=== PATIENT | female | born 1955 | race Hispanic/Latino ===

== ENCOUNTER 2016-03-13 19:45 | Inpatient (IN) | payer MEDICARE ==
--- NOTE | 2016-03-13 22:07 | Emergency Department Report ---
Chief Complaint: Hyperglycemia Stated Complaint: HIGH BLOOD GLUCOSE Time Seen by Provider: 03/13/16 21:50 - HPI History of Present Illness: 60-year-old female, brought in by ambulance for her hyperglycemia and weakness. Patient has history of diabetes and is currently on Lantus. Her blood glucose level was elevated this morning the patient refused to go to the hospital. Patient also refused to administer her insulin with BG level of 471 this evening. Denies chest pain, shortness of breath, abdominal pain. - ROS Review of Systems: Per HPI - Exam Vital Signs: Vital Signs 03/13/16 20:56 Temperature 97.9 F Pulse Rate 112 H Respiratory 18 Rate Blood Pressure 125/70 O2 Sat by Pulse 93 Oximetry Physical Exam: General: 60-year-old female in no acute distress. Unable to stay awake. CV: Regular rate and rhythm. Lungs: Clear to auscultation bilaterally. Abdomen: No tenderness to palpation. No guarding or rebound tenderness. MSE screening note: Focused history and physical exam performed. Due to findings the following was ordered: ED Disposition for MSE Condition: Stable
[2016-03-13 23:03] LABS: Basophils % (Auto) 0.2 % (0.0-1.8); Eosinophils % (Auto) 0.6 % (0.0-4.3); Hematocrit 43.3 % (30.3-42.9); Hemoglobin 14.7 gm/dl (10.1-14.3); Mean Corpuscular HGB Conc 34 % (30-34); Mean Corpuscular Hemoglobin 30 pg (28-32); Mean Corpuscular Volume 88 fl (79-97); Platelet Count 441 K/mm3 (140-440); Red Blood Count 4.94 M/mm3 (3.65-5.03); Red Cell Distribution Width 13.4 % (13.2-15.2); White Blood Count 17.9 K/mm3 (4.5-11.0)
[2016-03-13 23:17] LABS: Anion Gap 20 mmol/L; B-Hydroxybutyrate 6.8 mg/dL (0.2-2.8); Blood Urea Nitrogen 11 mg/dL (7-17); Calcium 8.7 mg/dL (8.4-10.2); Carbon Dioxide 22 mmol/L (22-30); Chloride 94.2 mmol/L (98-107); Glucose 406 mg/dL (65-100); Potassium 3.6 mmol/L (3.6-5.0); Sodium 133 mmol/L (137-145)
[2016-03-14] MEDS ORDERED: NACL 0.9% 1000 ML 1,000 ML IV ONE (08:11)
--- NOTE | 2016-03-14 08:11 | Emergency Department Report ---
ED General Adult HPI - General Chief complaint: Hyperglycemia Stated complaint: HIGH BLOOD GLUCOSE Time Seen by Provider: 03/13/16 22:07 Source: patient, EMS Mode of arrival: Wheelchair Limitations: No Limitations - History of Present Illness Initial comments: This is a patient that was transferred reported via EMS. 40 to the EMS report she was found sitting upright on her bed "complaining of weakness and nausea". The patient stated that she found that her glucose was approximately 500. Apparently. According to the RN present at that time wanted the patient to go to the hospital but she refused. Further the patient self administers insulin twice a day I am... She didn't take her insulin." The patient refused IV access. Apparently she has a history of schizophrenia. Contrary to the implications of this EMS reported the patient tells the nurse and myself that she is "homeless". The patient is said to have a history of a bipolar disorder and perhaps schizophrenia. Her current medications indicate hypothyroidism and anxiety disorder as well. In any case the patient presents to the emergency department with a chief complaint of "I'm hungry". The patient repeatedly states this. She does not complain of polyuria or polydipsia. She denies chest pain abdominal pain or recent vomiting although she stated that she was nauseated. She denies recent fever or chills. She is poorly cooperative with nursing staff. She is repeatedly asking for food. She is told that she will be fed once her sugar starts going down. She is not accepting of this. -: unknown Severity scale (0 -10): 0 Associated Symptoms: denies other symptoms - Related Data Home Medications Medication Instructions Recorded Confirmed Last Taken Levothyroxine [Synthroid] 125 mcg PO QAM 03/05/14 03/14/16 12/22/14 clonazePAM [KlonoPIN] 1 mg PO BID PRN 03/05/14 03/14/16 12/22/14 Lantus VIAL 50 units SUB-Q HS 12/15/14 03/14/16 12/22/14 Gabapentin [Neurontin] 300 mg PO BID 12/22/14 03/14/16 12/22/14 glipiZIDE [Glucotrol] 5 mg PO DAILY 12/22/14 03/14/16 12/22/14 Simvastatin 10 mg PO QHS 09/09/15 03/14/16 Unknown Lisinopril [Zestril] 5 mg PO QDAY 03/14/16 03/14/16 Unknown Metformin HCl [Fortamet ER] 1,000 mg PO BID 03/14/16 03/14/16 Unknown Trazodone HCl 450 mg PO HS 03/14/16 03/14/16 Unknown Allergies Allergy/AdvReac Type Severity Reaction Status Date / Time haloperidol [From Haldol] Allergy Unknown Verified 12/22/14 14:37 haloperidol lactate Allergy Unknown Verified 12/22/14 14:37 [From Haldol] ketorolac tromethamine Allergy Unknown Verified 12/22/14 14:37 [From Toradol] ED Review of Systems ROS: Stated complaint: HIGH BLOOD GLUCOSE Other details as noted in HPI Comment: All other systems reviewed and negative (patient only complaining of hunger now. Uncooperative historian) ED Past Medical Hx - Past Medical History Hx Hypertension: Yes Hx Diabetes: Yes Hx Psychiatric Treatment: Yes (schizo/bipolar) - Surgical History Hx Appendectomy: Yes Additional Surgical History: thyroid surgery, left knee surgery, bilateral tubal ligation, bladder tack - Social History Smoking Status: Current Every Day Smoker Substance Use Type: None - Medications Home Medications: Home Medications Medication Instructions Recorded Confirmed Last Taken Type Levothyroxine [Synthroid] 125 mcg PO QAM 03/05/14 03/14/16 12/22/14 History clonazePAM [KlonoPIN] 1 mg PO BID PRN 03/05/14 03/14/16 12/22/14 History Lantus VIAL 50 units SUB-Q HS 12/15/14 03/14/16 12/22/14 History Gabapentin [Neurontin] 300 mg PO BID 12/22/14 03/14/16 12/22/14 History glipiZIDE [Glucotrol] 5 mg PO DAILY 12/22/14 03/14/16 12/22/14 History Simvastatin 10 mg PO QHS 09/09/15 03/14/16 Unknown History Lisinopril [Zestril] 5 mg PO QDAY 03/14/16 03/14/16 Unknown History Metformin HCl [Fortamet ER] 1,000 mg PO BID 03/14/16 03/14/16 Unknown History Trazodone HCl 450 mg PO HS 03/14/16 03/14/16 Unknown History ED Physical Exam - General Limitations: No Limitations General appearance: alert, in no apparent distress - Head Head exam: Present: atraumatic, normocephalic - Eye Eye exam: Present: normal appearance, PERRL, EOMI. Absent: scleral icterus - ENT ENT exam: Present: mucous membranes moist - Neck Neck exam: Present: normal inspection - Respiratory Respiratory exam: Present: normal lung sounds bilaterally. Absent: respiratory distress - Cardiovascular Cardiovascular Exam: Present: regular rate, normal rhythm. Absent: systolic murmur, diastolic murmur, rubs, gallop - GI/Abdominal GI/Abdominal exam: Present: soft, normal bowel sounds. Absent: distended, tenderness, guarding, rebound, rigid, organomegaly, mass - Extremities Exam Extremities exam: Present: normal inspection - Back Exam Back exam: Present: normal inspection - Neurological Exam Neurological exam: Present: alert, oriented X3, CN II-XII intact. Absent: motor sensory deficit - Psychiatric Psychiatric exam: Present: agitated, anxious - Skin Skin exam: Present: warm, dry, intact, normal color. Absent: rash ED Course Vital Signs 03/13/16 03/14/16 03/14/16 20:56 03:44 06:41 Temperature 97.9 F 97.8 F Pulse Rate 112 H 103 H 91 H Respiratory 18 20 18 Rate Blood Pressure 125/70 Blood Pressure 118/72 [Left] O2 Sat by Pulse 93 95 Oximetry 03/14/16 03/14/16 03/14/16 06:55 07:00 07:43 Temperature 97.9 F 97.6 F Pulse Rate 90 94 H 94 H Respiratory 18 11 L 16 Rate Blood Pressure 139/86 Blood Pressure 118/77 143/82 [Left] O2 Sat by Pulse 93 95 95 Oximetry 03/14/16 08:52 Temperature Pulse Rate 95 H Respiratory Rate Blood Pressure Blood Pressure [Left] O2 Sat by Pulse Oximetry - Reevaluation(s) Reevaluation #1: Apparently the nurse has had very poor cooperation from this patient. In fact she stated to me that the patient told her that she wanted to have a nurse that "spoke Latvian and was Jainism". Obviously, his does not make much sense. In addition I was told that the patient complained that we instituted a 1013 and we wouldn't feed her. Neither of these things are true. The patient was given IV insulin. Her glucose was rechecked. It was less than 200 and she was fed. I did not institute a 1013 at any time. However, the patient's EKG here has been somewhat irrational. I do not feel that there are 1013 criteria yet. I explained the situation to the hospitalist Dr. Brown. He understood that the patient had early DKA. She was also found to have leukocytosis and some pyuria. She was noncompliant with her insulin. This appeared to to both of us to be a reasonable admission. Therefore, I assume this patient was being admitted. 03/14/16 10:37 Reevaluation #2: Further care and management per hospitalist staff. 03/14/16 10:45 ED Medical Decision Making - Lab Data Result diagrams: 03/13/16 22:33 03/13/16 22:33 Laboratory Results - last 24 hr 03/13/16 03/13/16 03/13/16 21:05 22:33 22:33 WBC 17.9 H RBC 4.94 Hgb 14.7 H Hct 43.3 H MCV 88 MCH 30 MCHC 34 RDW 13.4 Plt Count 441 H Lymph % (Auto) 24.4 [place] % (Auto) 7.3 Eos % (Auto) 0.6 Baso % (Auto) 0.2 Lymph # 4.4 [place] # 1.3 H Eos # 0.1 Baso # 0.0 Seg Neutrophils % 67.5 Seg Neutrophils # 12.1 H VBG pH Sodium 133 L Potassium 3.6 Chloride 94.2 L Carbon Dioxide 22 Anion Gap 20 BUN 11 Creatinine 0.4 L Estimated GFR > 60 BUN/Creatinine Ratio 27.50 Glucose 406 H POC Glucose 384 H Calcium 8.7 Ketones 6.8 H 03/13/16 22:33 WBC RBC Hgb Hct MCV MCH MCHC RDW Plt Count Lymph % (Auto) [place] % (Auto) Eos % (Auto) Baso % (Auto) Lymph # [place] # Eos # Baso # Seg Neutrophils % Seg Neutrophils # VBG pH 7.374 Sodium Potassium Chloride Carbon Dioxide Anion Gap BUN Creatinine Estimated GFR BUN/Creatinine Ratio Glucose POC Glucose Calcium Ketones - Radiology Data interpreted by me: Chest x-ray showed no acute process. Critical care attestation.: If time is entered above; I have spent that time in minutes in the direct care of this critically ill patient, excluding procedure time. ED Disposition Clinical Impression: Pyuria DKA (diabetic ketoacidoses) Qualifiers: Diabetes mellitus type: type 2 Diabetes mellitus complication detail: without coma Qualified Code(s): E13.10 - Other specified diabetes mellitus with ketoacidosis without coma Leukocytosis Qualifiers: Leukocytosis type: unspecified Qualified Code(s): D72.829 - Elevated white blood cell count, unspecified Disposition: OP ADMITTED IP TO THIS HOSP Is pt being admited?: Yes Does the pt Need Aspirin: No Condition: Stable Instructions: Diabetic Ketoacidosis (ED) Referrals: ESTEBAN JIMENES MD [Primary Care Provider] - 3-5 Days Time of Disposition: 10:44
[2016-03-14] MEDS ORDERED: K-DUR PO ONE (08:12)
[2016-03-14 08:19] LABS: Bacteria,Urine 1+ /HPF (Negative); Bilirubin,Urine NEG (Negative); Blood,Urine NEG (Negative); Ketones,Urine 20 mg/dL (Negative); Leukocyte Esterase,Urine SM (Negative); Mucus,Urine FEW /HPF; Nitrite,Urine NEG (Negative); Urobilinogen,Urine < 2.0 mg/dL (<2.0)
--- NOTE | 2016-03-14 10:28 | History and Physical Report ---
History of Present Illness Date of examination: 03/14/16 Date of admission: 03/14/16 Chief complaint: high BG LEVEL History of present illness: This is a patient that was transferred reported via EMS. EMS reported that she was found sitting upright on her bed "complaining of weakness and nausea". The patient stated that her HH nurse found that her glucose was approximately 540 yesterday and asked her to come to the hospital but she refused. But later on she became lightheaded and started feel very weak, her BG continue to run high. She then decided to come to hospital. She does not complain of polyuria or polydipsia. She denies chest pain abdominal pain or recent vomiting although she stated that she was nauseated. She denies recent fever or chills. Her BG in the ER noted to be 406 with high WBC count and UA suggestive of UTI. Past History Past Medical History: COPD, diabetes, heart failure (EF unknown), hypertension, hyperlipidemia, hypothyroidism, other (bipolar disorder) Past Surgical History: appendectomy, total knee replacement, Other (bladder tuck , tubal ligation) Social history: smoking. denies: alcohol abuse, IV drug use Family history: cancer (in grandmother) Medications and Allergies Allergies Allergy/AdvReac Type Severity Reaction Status Date / Time haloperidol [From Haldol] Allergy Unknown Verified 12/22/14 14:37 haloperidol lactate Allergy Unknown Verified 12/22/14 14:37 [From Haldol] ketorolac tromethamine Allergy Unknown Verified 12/22/14 14:37 [From Toradol] Home Medications Medication Instructions Recorded Confirmed Last Taken Type Levothyroxine [Synthroid] 125 mcg PO QAM 03/05/14 03/14/16 12/22/14 History clonazePAM [KlonoPIN] 1 mg PO BID PRN 03/05/14 03/14/16 12/22/14 History Lantus VIAL 50 units SUB-Q HS 12/15/14 03/14/16 12/22/14 History Gabapentin [Neurontin] 300 mg PO BID 12/22/14 03/14/16 12/22/14 History glipiZIDE [Glucotrol] 5 mg PO DAILY 12/22/14 03/14/16 12/22/14 History Simvastatin 10 mg PO QHS 09/09/15 03/14/16 Unknown History Lisinopril [Zestril] 5 mg PO QDAY 03/14/16 03/14/16 Unknown History Metformin HCl [Fortamet ER] 1,000 mg PO BID 03/14/16 03/14/16 Unknown History Trazodone HCl 450 mg PO HS 03/14/16 03/14/16 Unknown History Active Meds: Review of System: Constitutional: no fever, no chills, no weight loss Ears, eyes, nose, mouth and throat: no nasal congestion, no nasal discharge, no sinus pressure, no vision change, no red eye. Neck: No neck pain or rigidity. Cardiovascular: No chest pain, no orthopnea, no palpitations, no leg swelling Respiratory: No shortness of breath, no cough, no congestion, no wheezing Gastrointestinal: no abdominal pain, + nausea, no vomiting Genitourinary : + dysuria, no hematuria Musculoskeletal: no joint swelling or muscle ache Integumentary: no rash, no pruritis Neurological: no parathesias, no numbness, no tingling Endocrine: no cold or heat intolerance, no polyuria or polydipsia Hematologic/Lymphatic: no easy bruising, no easy bleeding, no gland swelling Allergic/Immunologic: no urticaria, no angioedema. Review of Systems ROS unobtainable: due to mental status Exam - Physical Exam Narrative exam: GENERAL: This is well-developed well-nourished WF lying on bed appeared to be in no discomfort. HEENT: Normocephalic. Atraumatic. Extraocular motions are intact. No conjunctival congestion or icterus. Patient has moist mucous membranes. External auditory canal and nares patent bilaterally. NECK: Supple. Trachea midline. No JVD, thyromagaly or lymphadenopathy. CHEST/LUNGS: Clear to auscultated bilaterally. There is no respiratory distress noted, breathing nonlabored. No wheezes crackles or rhonchi. HEART/CARDIOVASCULAR: Tachycardic. PMI at the apex. There is no gallop rub or murmur. ABDOMEN: Abdomen is soft, nontender. Patient has normal bowel sounds. There is no abdominal distention. No organomagaly or rigidity. SKIN: There is no rash, no erythrema. There is no diaphoresis. Warm and dry. NEUROLOGY: The patient is awake, alert, and oriented. The patient is cooperative. The patient has normal speech. No focal motor deficit. MUSCULOSKELETAL: No joint effusion or tenderness. Muscle strength equal bilaterally. No muscle wasting. EXTRIMITY: No edema, cyanosis or clubbing. PSYCH: No depression or anxiety noted. Cooperative. - Constitutional Vitals: Temp Pulse Resp BP Pulse Ox 97.6 F 95 H 16 143/82 95 03/14/16 07:43 03/14/16 08:52 03/14/16 07:43 03/14/16 07:43 03/14/16 07:43 Results - Labs CBC & Chem 7: 03/15/16 05:15 03/15/16 05:15 Labs: Laboratory Last Values WBC 17.9 K/mm3 (4.5-11.0) H 03/13/16 22:33 RBC 4.94 M/mm3 (3.65-5.03) 03/13/16 22:33 Hgb 14.7 gm/dl (10.1-14.3) H 03/13/16 22:33 Hct 43.3 % (30.3-42.9) H 03/13/16 22:33 MCV 88 fl (79-97) 03/13/16 22:33 MCH 30 pg (28-32) 03/13/16 22:33 MCHC 34 % (30-34) 03/13/16 22:33 RDW 13.4 % (13.2-15.2) 03/13/16 22: Plt Count 441 K/mm3 (140-440) H 03/13/16 22:33 Lymph % (Auto) 24.4 % (13.4-35.0) 03/13/16 22:33 [place] % (Auto) 7.3 % (0.0-7.3) 03/13/16 22:33 Eos % (Auto) 0.6 % (0.0-4.3) 03/13/16 22:33 Baso % (Auto) 0.2 % (0.0-1.8) 03/13/16 22: Lymph # 4.4 K/mm3 (1.2-5.4) 03/13/16 22:33 [place]oke # 1.3 K/mm3 (0.0-0.8) H 03/13/16 22: Eos # 0.1 K/mm3 (0.0-0.4) 03/13/16 22:33 Baso # 0.0 K/mm3 (0.0-0.1) 03/13/16 22:33 Seg Neutrophils % 67.5 % (40.0-70.0) 03/13/16 22:33 Seg Neutrophils # 12.1 K/mm3 (1.8-7.7) H 03/13/16 22:33 VBG pH 7.374 (7.320-7.420) 03/13/16 22:33 Sodium 133 mmol/L (137-145) L 03/13/16 22:33 Potassium 3.6 mmol/L (3.6-5.0) 03/13/16 22:33 Chloride 94.2 mmol/L (98-107) L 03/13/16 22:33 Carbon Dioxide 22 mmol/L (22-30) 03/13/16 22:33 Anion Gap 20 mmol/L 03/13/16 22:33 BUN 11 mg/dL (7-17) 03/13/16 22:33 Creatinine 0.4 mg/dL (0.7-1.2) L 03/13/16 22:33 Estimated GFR > 60 ml/min 03/13/16 22:33 BUN/Creatinine Ratio 27.50 % 03/13/16 22:33 Glucose 406 mg/dL (65-100) H 03/13/16 22:33 POC Glucose 127 (70-105) H 03/14/16 09:52 Calcium 8.7 mg/dL (8.4-10.2) 03/13/16 22:33 Urine Color Yellow (Yellow) 03/14/16 07:46 Urine Turbidity Clear (Clear) 03/14/16 07:46 Urine pH 6.0 (5.0-7.0) 03/14/16 07:46 Ur Specific [place] 1.033 (1.003-1.030) H 03/14/16 07:46 Urine Protein 30 mg/dl mg/dL (Negative) 03/14/16 07:46 Urine Glucose (UA) >=500 mg/dL (Negative) 03/14/16 07:46 Urine Ketones 20 mg/dL (Negative) 03/14/16 07:46 Urine Blood Neg (Negative) 03/14/16 07:46 Urine Nitrite Neg (Negative) 03/14/16 07:46 Urine Bilirubin Neg (Negative) 03/14/16 07:46 Urine Urobilinogen < 2.0 mg/dL (<2.0) 03/14/16 07:46 Ur Leukocyte Esterase Sm (Negative) 03/14/16 07:46 Urine WBC (Auto) 18.0 /HPF (0.0-6.0) H 03/14/16 07:46 Urine RBC (Auto) 8.0 /HPF (0.0-6.0) 03/14/16 07:46 U Epithel Cells (Auto) 7.0 /HPF (0-13.0) 03/14/16 07:46 Urine Bacteria (Auto) 1+ /HPF (Negative) 03/14/16 07:46 Urine Mucus Few /HPF 03/14/16 07:46 Ketones 6.8 mg/dL (0.2-2.8) H 03/13/16 22:33 - Imaging and Cardiology Chest x-ray: report reviewed (no infiltrates) Assessment and Plan Assessment and plan: Sepsis likely due to UTI Urinary tract infection Hyperglycemia due to uncontrolled diabetes mellitus type 2 Bipolar disorder, not on any medication hypertension, benign essential hypothyroidism Plan: Admit to medicine Continue subcutaneous insulin and ADA diet along with IV fluid hydration Get mental health evaluation Place on antibiotics, follow urine culture convention manager consultation for placement resume home meds It took me about 45 minutes for initial care of this patient including history and physical, reviewing initial lab results and ER documents, placing admission orders, bedside counseling and coordination of care. Advance Directives: Yes VTE prophylaxis?: Chemical Plan of care discussed with patient/family: Yes
[2016-03-14] MEDS ORDERED: MILK OF MAGNESIA PO PRN (10:35)
[2016-03-14] MEDS ORDERED: AMBIEN PO PRN (10:35)
[2016-03-14] MEDS ORDERED: ZOFRAN IV PRN (10:35)
[2016-03-14] MEDS ORDERED: TYLENOL PO PRN (10:35)
[2016-03-14] MEDS ORDERED: DULCOLAX PR PRN (10:35)
[2016-03-14] MEDS ORDERED: LEVAQUIN 750MG/150ML 150 ML IV ONE ×2 (10:36→11:12)
--- NOTE | 2016-03-14 11:05 | Admit Criteria Form ---
Admission Criteria Documentation: DIABETES Clinical Indications for Admission to Inpatient Care (Place 'X' for any and all applicable criteria): Admission is indicated by presence of ALL (if I & II) or ANY ONE (if III or IV) of the following (1)(2)(3)(4): [X]I. Diabetes is uncontrolled as indicated by ANY ONE of the following: [X]a) Diabetic ketoacidosis as indicated by ALL of the following (8): [X]i) Hyperglycemia (eg, plasma glucose greater than 200 mg/ dL (11.1 mmol/L)) [ ]ii) Acidosis (eg, arterial pH less than 7.30, serum bicarbonate level less than 15 mEq/L (mmol/L)) [X]iii) Moderate ketonuria or ketonemia [ ]b) Hyperglycemic hyperosmolar state as indicated by ALL of the following(9)(10): [ ]i) Neurologic dysfunction (eg, stupor, coma, hemiparesis , seizure)(13) [ ]ii) Plasma glucose greater than 600 mg/dL (33.3 mmol/L) [ ]iii) Serum osmolality greater than 320 mOsm/kg (mmol/kg) [X]c) Severe signs or symptoms secondary to hyperglycemia indicated by ANY ONE of the following: [ ]i) Altered mental status(10) [ ]ii) Significant hypovolemia or dehydration [ ]iii) Intractable nausea or vomiting [ ]iv) Unexplained fever or severe infection [X]v) Severe electrolyte abnormality (eg, hypokalemia, hyperkalemia, hypernatremia) [ ]II. Management at other levels of care (Also use Diabetes: Observation Care as appropriate) is not feasible because of ANY ONE of the following: [ ]a) Condition was not adequately corrected with treatment at other levels of care. [ ]b) Treatment at other levels of care is not appropriate because of condition severity (eg, hyperosmolar coma). [X]III. Contraindications and/or Inappropriate clinical situations for Observational Care in patients with Diabetes, when ANY ONE of the following is required: [X]a) Patient require specific diagnostic workup or therapeutic intervention 22 [ ]b) Patient with abnormal vital signs or altered mental status 23 [ ]IV. General contraindications and/or Inappropriate clinical situations for Observational Care in patients with Diabetes, when ANY ONE of the following is required: [ ]a) Prediction of prolongation of LOS based on ANY ONE of the following may be considered as a contraindication for observational care 2, 3, 4, 5, 6, 7, 8, 9, 10, 11 [ ]i) Age > 65 yrs. [ ]ii) Patient arriving by ambulance [ ]iii) Patient with high acuity [ ]iv) Patient requiring vital sign monitoring [ ]v) Patient on IV medication [ ]b) Systolic blood pressures 180mmHg 3,12 [ ]c) Patient with altered mental status including delirium and other alteration of consciousness, (3) [ ]d) Patient whose discharge disposition will be to a shelter home or rehabilitation home should not be managed in Emergency Department Observation Unit. CMS rule requires 3 days hospital stay before such placement.3,13 [ ]e) Patient with failure to thrive due to broad array of etiologies 3,16,17 [ ]f) Inability to ambulate 3,14 Extended stay beyond goal length of stay may be needed for(3)(20): [ ]a) Treatment of precipitating causes [ ]b) Development of hypoglycemia [ ]c) Complications of treatment [ ]d) Complications of decompensated diabetes (eg, acute gastric dilatation, persistent metabolic or neurologic derangement) [ ]e) Active Comorbidities [ ]f) Older patients( 65 years or older) The original [facility] content created by [employer] has been revised. The portions of the content which have been revised are identified through the use of italic text or in bold,and [facility] has neither reviewed nor approved the modified material. All other unmodified content is copyright [facility]. Please see references footnoted in the original [facility] edition 2016 Admission Criteria Met: Yes
--- NOTE | 2016-03-14 11:08 | XRay Report ---
Single view chest: Compared to 09/09/15 History: Cough. Findings: Normal cardiomediastinal silhouette. Trachea is midline. No consolidation, pneumothorax or pleural effusion. Impression: No acute cardiopulmonary findings .
[2016-03-14] MEDS ORDERED: GLUCOTROL PO SCH (12:00)
[2016-03-14] MEDS: ZESTRIL PO SCH (14:11)
[2016-03-14] MEDS: PEPCID PO SCH ×2 (14:11→22:13)
[2016-03-14] MEDS: GLUCOTROL PO SCH (14:11)
[2016-03-14] MEDS: LOVENOX SUB-Q SCH (14:11)
[2016-03-14] MEDS: NEURONTIN PO SCH ×2 (14:11→22:12)
[2016-03-14] MEDS: NACL 0.9% 1000 ML 1,000 ML IV SCH (16:10)
[2016-03-14] MEDS: GLUCOPHAGE PO SCH (17:38)
[2016-03-14] MEDS ORDERED: NON-FORMULARY (Metformin Hcl [Fortamet Er] 1,000 MG) PO SCH (22:00)
[2016-03-14] MEDS ORDERED: LANTUS 20 UNIT SUB-Q SCH (22:00)
[2016-03-14] MEDS ORDERED: LEVEMIR SUB-Q SCH (22:00)
[2016-03-14] MEDS ORDERED: NON-FORMULARY (Simvastatin 10 MG) PO SCH (22:00)
[2016-03-14] MEDS ORDERED: TRAZODONE HCL PO SCH (22:00)
[2016-03-14] MEDS: ZOCOR PO SCH (22:12)
[2016-03-14] MEDS: DESYREL PO SCH (22:12)
[2016-03-14] MEDS: COLACE PO SCH (22:13)
[2016-03-15] MEDS: SYNTHROID PO SCH (05:16)
[2016-03-15] MEDS: NACL 0.9% 1000 ML 1,000 ML IV SCH ×2 (05:19→17:41)
[2016-03-15 05:45] LABS: Basophils % (Auto) 0.5 % (0.0-1.8); Eosinophils % (Auto) 1.2 % (0.0-4.3); Hematocrit 39.9 % (30.3-42.9); Hemoglobin 13.4 gm/dl (10.1-14.3); Mean Corpuscular HGB Conc 34 % (30-34); Mean Corpuscular Hemoglobin 30 pg (28-32); Mean Corpuscular Volume 88 fl (79-97); Platelet Count 359 K/mm3 (140-440); Red Blood Count 4.53 M/mm3 (3.65-5.03); Red Cell Distribution Width 13.4 % (13.2-15.2)
[2016-03-15 06:00] LABS: BUN/Creatinine Ratio 26.66; Blood Urea Nitrogen 8 mg/dL (7-17); Carbon Dioxide 21 mmol/L (22-30); Chloride 100.4 mmol/L (98-107); Glucose 271 mg/dL (65-100); Potassium 3.9 mmol/L (3.6-5.0); Sodium 136 mmol/L (137-145)
[2016-03-15 06:01] LABS: Anion Gap 19 mmol/L
[2016-03-15] MEDS: LOVENOX SUB-Q SCH (09:25)
[2016-03-15] MEDS: LEVAQUIN 750MG/150ML 150 ML IV SCH (09:25)
[2016-03-15] MEDS: NEURONTIN PO SCH ×2 (09:26→22:06)
[2016-03-15] MEDS: ZESTRIL PO SCH (09:26)
[2016-03-15] MEDS: GLUCOPHAGE PO SCH ×2 (09:27→17:29)
[2016-03-15] MEDS: COLACE PO SCH ×2 (09:27→22:06)
[2016-03-15] MEDS: PEPCID PO SCH ×2 (09:27→22:07)
[2016-03-15] MEDS: GLUCOTROL PO SCH (09:28)
[2016-03-15] MEDS ORDERED: LOVENOX SUB-Q SCH (10:00)
[2016-03-15] MEDS ORDERED: LEVEMIR SUB-Q SCH ×2 (22:00)
[2016-03-15] MEDS: DESYREL PO SCH (22:06)
[2016-03-15] MEDS: ZOCOR PO SCH (22:07)
[2016-03-16] MEDS: SYNTHROID PO SCH (06:34)
[2016-03-16] MEDS: NACL 0.9% 1000 ML 1,000 ML IV SCH (07:00)
[2016-03-16] MEDS: GLUCOPHAGE PO SCH (09:00)
[2016-03-16] MEDS: LEVAQUIN 750MG/150ML 150 ML IV SCH (10:09)
[2016-03-16] MEDS: LOVENOX SUB-Q SCH (10:10)
[2016-03-16] MEDS: NEURONTIN PO SCH (10:20)
[2016-03-16] MEDS: GLUCOTROL PO SCH (10:22)
[2016-03-16] MEDS: PEPCID PO SCH (10:22)
[2016-03-16] MEDS: COLACE PO SCH (10:23)
[2016-03-16] MEDS: ZESTRIL PO SCH (10:29)
--- NOTE | 2016-03-16 11:22 | Progress Note ---
Assessment and Plan Assessment and plan: Sepsis likely due to UTI Urinary tract infection Hyperglycemia due to uncontrolled diabetes mellitus type 2 Bipolar disorder, not on any medication hypertension, benign essential hypothyroidism Plan: adjust subcutaneous insulin, increase the dose and cont ADA diet along with IV fluid hydration Pending mental health evaluation cont on antibiotics, follow urine culture manager party consultation for placement continue home meds Disposition: possible discharge tomorrow History Interval history: Patient seen and examined. Medical records and medication list reviewed. No acute event overnight noted by the RN. Patient denies any chest pain or difficulty breathing. Patient is tolerating diet. Blood glucose above 350 today morning Discussed plan of care at bedside with patient. Hospitalist Physical - Physical exam Narrative exam: GENERAL: This is well-developed well-nourished WF lying on bed appeared to be in no discomfort. HEENT: Normocephalic. Atraumatic. Extraocular motions are intact. No conjunctival congestion or icterus. Patient has moist mucous membranes. External auditory canal and nares patent bilaterally. NECK: Supple. Trachea midline. No JVD, thyromagaly or lymphadenopathy. CHEST/LUNGS: Clear to auscultated bilaterally. There is no respiratory distress noted, breathing nonlabored. No wheezes crackles or rhonchi. HEART/CARDIOVASCULAR: Tachycardic. PMI at the apex. There is no gallop rub or murmur. ABDOMEN: Abdomen is soft, nontender. Patient has normal bowel sounds. There is no abdominal distention. No organomagaly or rigidity. SKIN: There is no rash, no erythrema. There is no diaphoresis. Warm and dry. NEUROLOGY: The patient is awake, alert, and oriented. The patient is cooperative. The patient has normal speech. No focal motor deficit. MUSCULOSKELETAL: No joint effusion or tenderness. Muscle strength equal bilaterally. No muscle wasting. EXTRIMITY: No edema, cyanosis or clubbing. PSYCH: No depression or anxiety noted. Cooperative. - Constitutional Vitals: Temp Pulse Resp BP Pulse Ox 98.1 F 81 20 109/62 98 03/16/16 08:00 03/16/16 10:29 03/16/16 08:00 03/16/16 10:29 03/16/16 08:00 Results - Labs CBC & Chem 7: 03/15/16 05:15 03/15/16 05:15 Labs: Laboratory Last Values WBC 9.0 K/mm3 (4.5-11.0) 03/15/16 05:15 RBC 4.53 M/mm3 (3.65-5.03) 03/15/16 05:15 Hgb 13.4 gm/dl (10.1-14.3) 03/15/16 05:15 Hct 39.9 % (30.3-42.9) 03/15/16 05:15 MCV 88 fl (79-97) 03/15/16 05:15 MCH 30 pg (28-32) 03/15/16 05:15 MCHC 34 % (30-34) 03/15/16 05:15 RDW 13.4 % (13.2-15.2) 03/15/16 05:15 Plt Count 359 K/mm3 (140-440) 03/15/16 05:15 Lymph % (Auto) 31.2 % (13.4-35.0) 03/15/16 05:15 [place] % (Auto) 7.8 % (0.0-7.3) H 03/15/16 05:15 Eos % (Auto) 1.2 % (0.0-4.3) 03/15/16 05:15 Baso % (Auto) 0.5 % (0.0-1.8) 03/15/16 05:15 Lymph # 2.8 K/mm3 (1.2-5.4) 03/15/16 05:15 [place] # 0.7 K/mm3 (0.0-0.8) 03/15/16 05:15 Eos # 0.1 K/mm3 (0.0-0.4) 03/15/16 05:15 Baso # 0.0 K/mm3 (0.0-0.1) 03/15/16 05:15 Seg Neutrophils % 59.3 % (40.0-70.0) 03/15/16 05:15 Seg Neutrophils # 5.3 K/mm3 (1.8-7.7) 03/15/16 05:15 VBG pH 7.374 (7.320-7.420) 03/13/16 22:33 Sodium 136 mmol/L (137-145) L 03/15/16 05:15 Potassium 3.9 mmol/L (3.6-5.0) 03/15/16 05:15 Chloride 100.4 mmol/L (98-107) 03/15/16 05:15 Carbon Dioxide 21 mmol/L (22-30) L 03/15/16 05:15 Anion Gap 19 mmol/L 03/15/16 05:15 BUN 8 mg/dL (7-17) 03/15/16 05:15 Creatinine 0.3 mg/dL (0.7-1.2) L 03/15/16 05:15 Estimated GFR > 60 ml/min 03/15/16 05:15 BUN/Creatinine Ratio 26.66 % 03/15/16 05:15 Glucose 271 mg/dL (65-100) H 03/15/16 05:15 POC Glucose 199 (70-105) H 03/16/16 06:38 Hemoglobin A1c 12.7 % (4-6) H 03/13/16 22:33 Calcium 8.0 mg/dL (8.4-10.2) L 03/15/16 05:15 Urine Color Yellow (Yellow) 03/14/16 07:46 Urine Turbidity Clear (Clear) 03/14/16 07:46 Urine pH 6.0 (5.0-7.0) 03/14/16 07:46 Ur Specific [place] 1.033 (1.003-1.030) H 03/14/16 07:46 Urine Protein 30 mg/dl mg/dL (Negative) 03/14/16 07:46 Urine Glucose (UA) >=500 mg/dL (Negative) 03/14/16 07:46 Urine Ketones 20 mg/dL (Negative) 03/14/16 07:46 Urine Blood Neg (Negative) 03/14/16 07:46 Urine Nitrite Neg (Negative) 03/14/16 07:46 Urine Bilirubin Neg (Negative) 03/14/16 07:46 Urine Urobilinogen < 2.0 mg/dL (<2.0) 03/14/16 07:46 Ur Leukocyte Esterase Sm (Negative) 03/14/16 07:46 Urine WBC (Auto) 18.0 /HPF (0.0-6.0) H 03/14/16 07:46 Urine RBC (Auto) 8.0 /HPF (0.0-6.0) 03/14/16 07:46 U Epithel Cells (Auto) 7.0 /HPF (0-13.0) 03/14/16 07:46 Urine Bacteria (Auto) 1+ /HPF (Negative) 03/14/16 07:46 Urine Mucus Few /HPF 03/14/16 07:46 Ketones 6.8 mg/dL (0.2-2.8) H 03/13/16 22:33
--- NOTE | 2016-03-16 11:24 | Discharge Summary ---
Providers - Providers Date of Admission: 03/14/16 10:35 Date of discharge: 03/16/16 Attending physician: MONIQUE PARKS Primary care physician: ESTEBAN JIMENES Hospitalization Condition: Stable Hospital course: This is a patient that was transferred reported via EMS. EMS reported that she was found sitting upright on her bed "complaining of weakness and nausea". The patient stated that her HH nurse found that her glucose was approximately 540 yesterday and asked her to come to the hospital but she refused. But later on she became lightheaded and started feel very weak, her BG continue to run high. She then decided to come to hospital. Her BG in the ER noted to be 406 with high WBC count and UA suggestive of UTI. Her A1c was 12.7. She was placed on IV fluid hydration along with IV antibiotics. Her blood glucoses are monitored and sliding scale of insulin was initiated along with long-acting subcutaneous insulin. Her insulin dose was adjusted according to her blood glucose level. Her clinical symptom improved significantly and she was discharged back home in stable condition. Discharge diagnoses: Sepsis likely due to UTI Urinary tract infection Hyperglycemia with mild DKA due to uncontrolled diabetes mellitus type 2 Bipolar disorder, not on any medication hypertension, benign essential hypothyroidism Disposition: DC/TX HOME UNDER HOME HEALTH Time spent for discharge: 32 minutes Core Measure Documentation - Palliative Care Palliative Care/ Comfort Measures: Not Applicable - Core Measures Any of the following diagnoses?: none Exam - Physical Exam Narrative exam: GENERAL: This is well-developed well-nourished WF lying on bed appeared to be in no discomfort. HEENT: Normocephalic. Atraumatic. Extraocular motions are intact. No conjunctival congestion or icterus. Patient has moist mucous membranes. External auditory canal and nares patent bilaterally. NECK: Supple. Trachea midline. No JVD, thyromagaly or lymphadenopathy. CHEST/LUNGS: Clear to auscultated bilaterally. There is no respiratory distress noted, breathing nonlabored. No wheezes crackles or rhonchi. HEART/CARDIOVASCULAR: Tachycardic. PMI at the apex. There is no gallop rub or murmur. ABDOMEN: Abdomen is soft, nontender. Patient has normal bowel sounds. There is no abdominal distention. No organomagaly or rigidity. SKIN: There is no rash, no erythrema. There is no diaphoresis. Warm and dry. NEUROLOGY: The patient is awake, alert, and oriented. The patient is cooperative. The patient has normal speech. No focal motor deficit. MUSCULOSKELETAL: No joint effusion or tenderness. Muscle strength equal bilaterally. No muscle wasting. EXTRIMITY: No edema, cyanosis or clubbing. PSYCH: No depression or anxiety noted. Cooperative. - Constitutional Vitals: Temp Pulse Resp BP Pulse Ox 98.1 F 81 20 109/62 98 03/16/16 08:00 03/16/16 10:29 03/16/16 08:00 03/16/16 10:03/16/16 08:00 Plan Activity: fall precautions Weight Bearing Status: Weight Bear as Tolerated Diet: diabetic Follow up with: ESTEBAN JIMENES MD [Primary Care Provider] - 3-5 Days Prescriptions: Insulin Detemir [Levemir] 40 units SUB-Q QHS 30 Days Insulin Regular, Human [HumuLIN R] 5 units SUB-Q AC 30 Days Levofloxacin [Levaquin TAB] 500 mg PO QDAY #4 tablet
[2016-03-16 12:55] VITALS: BP 128/58
== END 2016-03-16 15:15 | disposition home health service (06) | DRG 871 ==
LOC: ED 19:45 → 3A 03-14 10:35
PROVIDERS: ADMIT Internal Medicine; ATTEND Internal Medicine
PROC: 4A033R1 Measurement of Arterial Saturation, Peripheral, Percutaneous Approach (ICD-10-PCS; principal; 2016-03-13)
DX: A41.9 Sepsis, unspecified organism (principal); E13.10 Other specified diabetes mellitus with ketoacidosis without coma; N39.0 Urinary tract infection, site not specified; F23 Brief psychotic disorder; F31.2 Bipolar disorder, current episode manic severe with psychotic features; F17.200 Nicotine dependence, unspecified, uncomplicated; J44.9 Chronic obstructive pulmonary disease, unspecified; I10 Essential (primary) hypertension; E78.5 Hyperlipidemia, unspecified; E03.9 Hypothyroidism, unspecified; F31.9 Bipolar disorder, unspecified; Z96.659 Presence of unspecified artificial knee joint; Z79.4 Long term (current) use of insulin; Z88.8 Allergy status to other drugs, medicaments and biological substances; Z90.89 Acquired absence of other organs; Z98.51 Tubal ligation status; Z98.890 Other specified postprocedural states; Z80.9 Family history of malignant neoplasm, unspecified
CPT/HCPCS: 36415; 71010; 80048; 81001; 82010; 82805; 82962; 83036; 85025; 87086; 96361; 96374; 96375; 99406; J1650; J1815; J1818; J1956; J7030

== ENCOUNTER 2016-11-17 19:31 | Emergency (ER) | payer MEDICARE ==
[2016-11-17] MEDS ORDERED: PROVENTIL IH ONE (19:36)
[2016-11-17] MEDS ORDERED: ATROVENT IH ONE (19:37)
[2016-11-17 20:14] LABS: Basophils % (Auto) 0.3 % (0.0-1.8); Eosinophils % (Auto) 0.8 % (0.0-4.3); Hematocrit 40.2 % (30.3-42.9); Hemoglobin 13.8 gm/dl (10.1-14.3); Mean Corpuscular HGB Conc 34 % (30-34); Mean Corpuscular Hemoglobin 30 pg (28-32); Mean Corpuscular Volume 87 fl (79-97); Platelet Count 297 K/mm3 (140-440); Red Blood Count 4.64 M/mm3 (3.65-5.03); Red Cell Distribution Width 12.9 % (13.2-15.2); White Blood Count 15.1 K/mm3 (4.5-11.0)
--- NOTE | 2016-11-17 20:25 | XRay Report ---
FINAL REPORT PROCEDURE: XR CHEST 1V AP TECHNIQUE: Chest radiograph anteroposterior view. CPT 66779 HISTORY: Shortness of breath COMPARISON: No prior studies are available for comparison. FINDINGS: Heart: Normal. Mediastinum/Vessels: Normal. Lungs/Pleural space: Normal. Bony thorax: No acute osseous abnormality. Life support devices: None. IMPRESSION: No acute cardiopulmonary abnormality.
[2016-11-17 20:29] LABS: Anion Gap 21 mmol/L; Blood Urea Nitrogen 6 mg/dL (7-17); Calcium 8.9 mg/dL (8.4-10.2); Carbon Dioxide 24 mmol/L (22-30); Chloride 92.4 mmol/L (98-107); Glucose 312 mg/dL (65-100); Potassium 3.6 mmol/L (3.6-5.0); Sodium 134 mmol/L (137-145)
[2016-11-17] MEDS ORDERED: ZITHROMAX PO ONE (21:10)
[2016-11-17] MEDS ORDERED: TESSALON PERLES PO ONE (21:10)
[2016-11-17] MEDS ORDERED: NACL 0.9% 1000 ML 1,000 ML IV ONE ×2 (21:10→23:27)
--- NOTE | 2016-11-17 22:59 | Emergency Department Report ---
ED Shortness of Breath HPI - General Chief Complaint: Dyspnea/Respdistress Stated Complaint: DIFFICULTY BREATHING Time Seen by Provider: 11/17/16 19:50 Source: patient Mode of arrival: Ambulatory Limitations: No Limitations - History of Present Illness Initial Comments: 60-year-old female past medical history arthritis, asthma, COPD, diabetes, hypertension, and schizophrenia/bipolar disorder presents also complains shortness breath the last 3-4 days. Patient had increasing shortness of breath and wheezing episodes. Positive cough productive of yellow sputum. Positive subjective fever. Patient also complains of discomfort in her throat feeling like phlegm is getting stuck. She denies any chest pain, calf tenderness, or edema. Patient has not had any inhaler, COPD medication, or nebulizer machine and several years. Patient received albuterol, site measure, and magnesium prior to evaluation - Related Data Previous Rx's Medication Instructions Recorded Last Taken Type Benztropine 1 mg PO BID #7 06/28/16 Unknown Rx Insulin Lispro [HumaLOG VIAL] 0 units SQ AC #1 vial 06/28/16 Unknown Rx clonazePAM 1 mg PO HS #7 06/28/16 Unknown Rx fluPHENAZine HCL [Prolixin] 5 mg PO HS #7 tablet 06/28/16 Unknown Rx glipiZIDE [Glucotrol] 10 mg PO BIDDIAB #60 tablet 06/28/16 Unknown Rx metFORMIN [Glucophage] 850 mg PO BIDDIAB #60 tablet 06/28/16 Unknown Rx traZODone 300 mg PO HS #7 06/28/16 Unknown Rx ALBUTEROL Inhaler [ProAir HFA 2 puff IH QID PRN #1 inhalation 11/18/16 Unknown Rx Inhaler] Azithromycin [Zithromax Z-ANA] 1 dose PO DAILY 5 Days 11/18/16 Unknown Rx Benzonatate [Tessalon Perles] 100 mg PO Q8HR PRN #30 capsule 11/18/16 Unknown Rx Inhaler, Assist Devices [Space 1 each MC PRN PRN #1 spacer 11/18/16 Unknown Rx Chamber Plus] Prednisone [predniSONE 10 mg 10 mg PO .TAPER #1 tab.ds.pk 11/18/16 Unknown Rx (6-Day Pack, 21 Tabs)] Allergies Allergy/AdvReac Type Severity Reaction Status Date / Time haloperidol [From Haldol] Allergy Unknown Verified 12/22/14 14:37 haloperidol lactate Allergy Unknown Verified 12/22/14 14:37 [From Haldol] ketorolac tromethamine Allergy Unknown Verified 12/22/14 14:37 [From Toradol] ED Review of Systems ROS: Stated complaint: DIFFICULTY BREATHING Other details as noted in HPI Comment: All other systems reviewed and negative Other: Constitutional: As per HPI Eyes: No eye pain visual changes or discharge ENT: As per HPI Neck: Denies pain Respiratory: As per HPI Cardiovascular: Denies chest pain, palpitations, syncope GI: Denies abdominal pain, nausea, vomiting, diarrhea : Denies dysuria Musculoskeletal: Denies back pain Skin: Denies rash, lesions, erythema Neurologic: Denies headache, numbness, weakness Psychiatric: Denies suicidal ideation, hallucinations ED Past Medical Hx - Past Medical History Hx Hypertension: Yes Hx Congestive Heart Failure: No Hx Diabetes: Yes Hx Arthritis: Yes Hx Psychiatric Treatment: Yes (schizo/bipolar) Hx Asthma: Yes Hx COPD: Yes - Surgical History Hx Appendectomy: Yes Additional Surgical History: thyroid surgery, left knee surgery, bilateral tubal ligation, bladder tack - Social History Smoking Status: Never Smoker Substance Use Type: None - Medications Home Medications: Home Medications Medication Instructions Recorded Confirmed Last Taken Type Benztropine 1 mg PO BID #7 06/28/16 06/15/16 Unknown Rx Insulin Lispro [HumaLOG VIAL] 0 units SQ AC #1 vial 06/28/16 Unknown Rx clonazePAM 1 mg PO HS #7 06/28/16 Unknown Rx fluPHENAZine HCL [Prolixin] 5 mg PO HS #7 tablet 06/28/16 Unknown Rx glipiZIDE [Glucotrol] 10 mg PO BIDDIAB #60 tablet 06/28/16 Unknown Rx metFORMIN [Glucophage] 850 mg PO BIDDIAB #60 tablet 06/28/16 Unknown Rx traZODone 300 mg PO HS #7 06/28/16 Unknown Rx ALBUTEROL Inhaler [ProAir HFA 2 puff IH QID PRN #1 inhalation 11/18/16 Unknown Rx Inhaler] Azithromycin [Zithromax Z-ANA] 1 dose PO DAILY 5 Days 11/18/16 Unknown Rx Benzonatate [Tessalon Perles] 100 mg PO Q8HR PRN #30 capsule 11/18/16 Unknown Rx Inhaler, Assist Devices [Space 1 each MC PRN PRN #1 spacer 11/18/16 Unknown Rx Chamber Plus] Prednisone [predniSONE 10 mg 10 mg PO .TAPER #1 tab.ds.pk 11/18/16 Unknown Rx (6-Day Pack, 21 Tabs)] ED Physical Exam - General Limitations: No Limitations - Other Other exam information: General: No limitations, patient is alert in no acute distress Head exam: Atraumatic, normocephalic Eyes exam: Normal appearance, pupils equal reactive to light, extraocular movements intact ENT: Moist mucous membrane, normal oropharynx Neck exam: Normal inspection, full range of motion, no meningismus nontender Respiratory exam: Patient has received several nebs prior to by auscultation and breath sounds appear clear but mild wheezing noted with frequent coughing. No tachypnea or accessory muscle use Cardiovascular: Normal rate and rhythm Abdomen: Soft, nondistended, and nontender, with normal bowel sounds, no rebound, or guarding Extremity: Full range of motion normal inspection no deformity, no calf tenderness or edema Back: Normal Inspection, full range of motion, no tenderness Neurologic: Alert, oriented x3, cranial nerves intact, no motor or sensory deficit Psychiatric: normal affect, normal mood Skin: Warm, dry, intact ED Course Vital Signs 11/17/16 11/17/16 11/17/16 19:43 19:44 23:30 Temperature 97.4 F L 98.1 F Pulse Rate 64 93 H Pulse Rate [ 95 H Posterior] Respiratory 16 20 Rate Respiratory 21 Rate [Posterior ] Blood Pressure 107/74 Blood Pressure 113/54 [Left] O2 Sat by Pulse 100 98 Oximetry 11/18/16 11/18/16 11/18/16 00:03 00:42 01:27 Temperature Pulse Rate 110 H Pulse Rate [ Posterior] Respiratory 18 Rate Respiratory Rate [Posterior ] Blood Pressure Blood Pressure 110/51 [Left] O2 Sat by Pulse 99 92 98 Oximetry - Reevaluation(s) Reevaluation #1: 11/18/16 01:10 Patient's glucose increased diabetes day. Patient was eating a lot of junk food during her ED stay. Patient was given insulin in addition to IV fluids and glucose remains in the 400s. Additional insulin given. Patient still receiving second liter of normal saline. UA ordered this patient is having to urinate frequently but nurse also reports that she drank a lot of water while she was here. - Consultations Consultation #1: 11/17/2016 11:36 PM Chart EKGs were reviewed by drums teacher acetaldehyde converter operator Dr. Carney. He states EKG it appears to be sinus and not atrial flutter as indicated by the computer read ED Medical Decision Making - Lab Data Result diagrams: 11/17/16 19:56 11/17/16 23:32 Lab Results 11/17/16 11/17/16 11/17/16 Range/Units 19:56 19:56 20:06 WBC 15.1 H (4.5-11.0) K/mm3 RBC 4.64 (3.65-5.03) M/mm3 Hgb 13.8 (10.1-14.3) gm/dl Hct 40.2 (30.3-42.9) % MCV 87 (79-97) fl MCH 30 (28-32) pg MCHC 34 (30-34) % RDW 12.9 L (13.2-15.2) % Plt Count 297 (140-440) K/mm3 Lymph % (Auto) 30.1 (13.4-35.0) % [place] % (Auto) 7.6 H (0.0-7.3) % Eos % (Auto) 0.8 (0.0-4.3) % Baso % (Auto) 0.3 (0.0-1.8) % Lymph # 4.5 (1.2-5.4) K/mm3 [place] # 1.1 H (0.0-0.8) K/mm3 Eos # 0.1 (0.0-0.4) K/mm3 Baso # 0.0 (0.0-0.1) K/mm3 Seg Neutrophils % 61.2 (40.0-70.0) % Seg Neutrophils # 9.2 H (1.8-7.7) K/mm3 PT (12.2-14.9) Sec. INR (0.87-1.13) APTT (24.2-36.6) Sec. Sodium 134 L (137-145) mmol/L Potassium 3.6 (3.6-5.0) mmol/L Chloride 92.4 L (98-107) mmol/L Carbon Dioxide 24 (22-30) mmol/L Anion Gap 21 mmol/L BUN 6 L (7-17) mg/dL Creatinine 0.4 L (0.7-1.2) mg/dL Estimated GFR > 60 ml/min BUN/Creatinine Ratio 15.00 % Glucose 312 H (65-100) mg/dL POC Glucose 298 H (70-105) Calcium 8.9 (8.4-10.2) mg/dL Troponin T < 0.010 (0.00-0.029) ng/mL 11/17/16 11/17/16 11/17/16 Range/Units 23:20 23:32 23:32 WBC (4.5-11.0) K/mm3 RBC (3.65-5.03) M/mm3 Hgb (10.1-14.3) gm/dl Hct (30.3-42.9) % MCV (79-97) fl MCH (28-32) pg MCHC (30-34) % RDW (13.2-15.2) % Plt Count (140-440) K/mm3 Lymph % (Auto) (13.4-35.0) % [place] % (Auto) (0.0-7.3) % Eos % (Auto) (0.0-4.3) % Baso % (Auto) (0.0-1.8) % Lymph # (1.2-5.4) K/mm3 [place] # (0.0-0.8) K/mm3 Eos # (0.0-0.4) K/mm3 Baso # (0.0-0.1) K/mm3 Seg Neutrophils % (40.0-70.0) % Seg Neutrophils # (1.8-7.7) K/mm3 PT 13.6 (12.2-14.9) Sec. INR 0.99 (0.87-1.13) APTT 28.6 (24.2-36.6) Sec. Sodium 132 L (137-145) mmol/L Potassium 4.4 D (3.6-5.0) mmol/L Chloride 90.9 L (98-107) mmol/L Carbon Dioxide 22 (22-30) mmol/L Anion Gap 24 mmol/L BUN 8 (7-17) mg/dL Creatinine 0.6 L (0.7-1.2) mg/dL Estimated GFR > 60 ml/min BUN/Creatinine Ratio 13.33 % Glucose 546 H* (65-100) mg/dL POC Glucose > 500 H (70-105) Calcium 8.3 L (8.4-10.2) mg/dL Troponin T (0.00-0.029) ng/mL 11/18/16 Range/Units 01:07 WBC (4.5-11.0) K/mm3 RBC (3.65-5.03) M/mm3 Hgb (10.1-14.3) gm/dl Hct (30.3-42.9) % MCV (79-97) fl MCH (28-32) pg MCHC (30-34) % RDW (13.2-15.2) % Plt Count (140-440) K/mm3 Lymph % (Auto) (13.4-35.0) % [place] % (Auto) (0.0-7.3) % Eos % (Auto) (0.0-4.3) % Baso % (Auto) (0.0-1.8) % Lymph # (1.2-5.4) K/mm3 [place] # (0.0-0.8) K/mm3 Eos # (0.0-0.4) K/mm3 Baso # (0.0-0.1) K/mm3 Seg Neutrophils % (40.0-70.0) % Seg Neutrophils # (1.8-7.7) K/mm3 PT (12.2-14.9) Sec. INR (0.87-1.13) APTT (24.2-36.6) Sec. Sodium (137-145) mmol/L Potassium (3.6-5.0) mmol/L Chloride (98-107) mmol/L Carbon Dioxide (22-30) mmol/L Anion Gap mmol/L BUN (7-17) mg/dL Creatinine (0.7-1.2) mg/dL Estimated GFR ml/min BUN/Creatinine Ratio % Glucose (65-100) mg/dL POC Glucose 401 H (70-105) Calcium (8.4-10.2) mg/dL Troponin T (0.00-0.029) ng/mL - EKG Data -: EKG Interpreted by Me - Radiology Data Radiology results: report reviewed (chest x-ray: No acute finding) - Medical Decision Making Patient is preferably discharged was glucose is improved. No signs of DKA. Patient was eating in the ED and did not have her evening insulin. Her symptoms of respiratory distress and acute bronchitis have improved with ED treatment. Patient will be discharged when his glucose has improved in the 200' s s/o to Dr Cho to d/c once glucose improves - Differential Diagnosis bronchitis, pneumonia, asthma, COPD Critical Care Time: No Critical care attestation.: If time is entered above; I have spent that time in minutes in the direct care of this critically ill patient, excluding procedure time. ED Disposition Clinical Impression: Schizophrenia, Diabetes mellitus with hyperglycemia, Acute bronchitis Disposition: TO HOME OR SELFCARE Is pt being admited?: No Does the pt Need Aspirin: No Condition: Stable Instructions: Diabetes Mellitus Type 2 in Adults (ED), Acute Bronchitis (ED) Additional Instructions: Take the medications as prescribed. Please note while taken prednisone you may have an increase in your glucose/sugar levels. Please continue to monitor closely. Follow-up with the doctor within 3-5 days. Prescriptions: ALBUTEROL Inhaler [ProAir HFA Inhaler] 2 puff IH QID PRN #1 inhalation PRN Reason: Shortness Of Breath Azithromycin [Zithromax Z-ANA] 1 dose PO DAILY 5 Days Benzonatate [Tessalon Perles] 100 mg PO Q8HR PRN #30 capsule PRN Reason: Cough Inhaler, Assist Devices [Space Chamber Plus] 1 each MC PRN PRN #1 spacer PRN Reason: Wheezing Prednisone [predniSONE 10 mg (6-Day Pack, 21 Tabs)] 10 mg PO .TAPER #1 tab.pk Referrals: PRIMARY CARE, [Primary Care Provider] - 3-5 Days Time of Disposition: 01:42
[2016-11-17 23:58] LABS: INR 0.99 (0.87-1.13)
[2016-11-17 23:59] LABS: Partial Thromboplastin Time 28.6 Sec. (24.2-36.6)
[2016-11-18 00:05] LABS: Anion Gap 24 mmol/L; BUN/Creatinine Ratio 13.33; Blood Urea Nitrogen 8 mg/dL (7-17); Calcium 8.3 mg/dL (8.4-10.2); Carbon Dioxide 22 mmol/L (22-30); Chloride 90.9 mmol/L (98-107); Potassium 4.4 mmol/L (3.6-5.0); Sodium 132 mmol/L (137-145)
[2016-11-18 00:23] LABS: Glucose 546 mg/dL (65-100)
[2016-11-18 02:04] LABS: Bilirubin,Urine NEG (Negative); Blood,Urine NEG (Negative); Ketones,Urine NEG (Negative); Leukocyte Esterase,Urine SM (Negative); Nitrite,Urine NEG (Negative); Protein,Urine <15 mg/dL mg/dL (Negative); Urobilinogen,Urine < 2.0 mg/dL (<2.0)
[2016-11-18 02:26] VITALS: BP 110/71
== END 2016-11-18 02:38 | disposition home or self-care (01) ==
LOC: ED 19:31
DX: J20.9 Acute bronchitis, unspecified (principal); E11.65 Type 2 diabetes mellitus with hyperglycemia; F20.9 Schizophrenia, unspecified; M19.90 Unspecified osteoarthritis, unspecified site; J45.909 Unspecified asthma, uncomplicated; J44.9 Chronic obstructive pulmonary disease, unspecified; Z88.8 Allergy status to other drugs, medicaments and biological substances; I10 Essential (primary) hypertension
CPT/HCPCS: 36415; 71010; 80048; 81001; 82962; 84484; 85025; 85610; 85730; 93005; 93010; 94640; 96361; 96374; 96376; 99284; J7030; J1815

== ENCOUNTER 2016-12-07 23:51 | Emergency (ER) | payer MEDICARE ==
[2016-12-08 01:25] LABS: Basophils % (Auto) 0.4 % (0.0-1.8); Eosinophils % (Auto) 1.3 % (0.0-4.3); Hematocrit 45.9 % (30.3-42.9); Hemoglobin 15.9 gm/dl (10.1-14.3); Mean Corpuscular HGB Conc 35 % (30-34); Mean Corpuscular Hemoglobin 31 pg (28-32); Mean Corpuscular Volume 88 fl (79-97); Platelet Count 259 K/mm3 (140-440); Red Blood Count 5.19 M/mm3 (3.65-5.03); Red Cell Distribution Width 13.9 % (13.2-15.2); White Blood Count 10.3 K/mm3 (4.5-11.0)
[2016-12-08 01:30] LABS: Anion Gap 18 mmol/L; BUN/Creatinine Ratio 14; Blood Urea Nitrogen 7 mg/dL (7-17); Calcium 9.2 mg/dL (8.4-10.2); Carbon Dioxide 28 mmol/L (22-30); Chloride 99.8 mmol/L (98-107); Glucose 303 mg/dL (65-100); Potassium 4.5 mmol/L (3.6-5.0); Sodium 141 mmol/L (137-145)
[2016-12-08 02:31] LABS: Urine Drugs of Abuse Note Disclamer
[2016-12-08 02:48] LABS: Bacteria,Urine 1+ /HPF (Negative); Bilirubin,Urine NEG (Negative); Blood,Urine SM (Negative); Ketones,Urine NEG (Negative); Leukocyte Esterase,Urine LG (Negative); Nitrite,Urine NEG (Negative); Protein,Urine <15 mg/dL mg/dL (Negative); Urobilinogen,Urine < 2.0 mg/dL (<2.0)
[2016-12-08] MEDS ORDERED: DUONEB *Not for PRN Use IH ONE (06:42)
--- NOTE | 2016-12-08 06:47 | Emergency Department Report ---
ED Psych HPI - General Chief Complaint: Psych Stated Complaint: MH Time Seen by Provider: 12/08/16 06:38 Source: patient Mode of arrival: Ambulatory Limitations: No Limitations - History of Present Illness Initial Comments: 60-year-old female with a past history of arthritis, asthma, COPD, diabetes, hypertension comes schizophrenia bipolar disorder presents to Hospital complaining of the hospital requesting mental health evaluation. Patient states she resides in a detention and her roommate will let her sleep. No other complaints. Denies suicidal ideation, homicidal ideation, hallucinations , or new physical symptoms. Patient states she is compliant with her medication. Frequent dry cough noted during interview this patient states is chronic secondary to smoking and COPD. No reports of fever or pain. - Related Data Previous Rx's Medication Instructions Recorded Last Taken Type Benztropine 1 mg PO BID #7 06/28/16 Unknown Rx Insulin Lispro [HumaLOG VIAL] 0 units SQ AC #1 vial 06/28/16 Unknown Rx clonazePAM 1 mg PO HS #7 06/28/16 Unknown Rx fluPHENAZine HCL [Prolixin] 5 mg PO HS #7 tablet 06/28/16 Unknown Rx glipiZIDE [Glucotrol] 10 mg PO BIDDIAB #60 tablet 06/28/16 Unknown Rx metFORMIN [Glucophage] 850 mg PO BIDDIAB #60 tablet 06/28/16 Unknown Rx traZODone 300 mg PO HS #7 06/28/16 Unknown Rx ALBUTEROL Inhaler [ProAir HFA 2 puff IH QID PRN #1 inhalation 11/18/16 Unknown Rx Inhaler] Azithromycin [Zithromax Z-ANA] 1 dose PO DAILY 5 Days 11/18/16 Unknown Rx Benzonatate [Tessalon Perles] 100 mg PO Q8HR PRN #30 capsule 11/18/16 Unknown Rx Inhaler, Assist Devices [Space 1 each MC PRN PRN #1 spacer 11/18/16 Unknown Rx Chamber Plus] Prednisone [predniSONE 10 mg 10 mg PO .TAPER #1 tab.ds.pk 11/18/16 Unknown Rx (6-Day Pack, 21 Tabs)] Nitrofurantoin Monohyd/M-Cryst 100 mg PO BID #10 capsule 12/08/16 Unknown Rx [Macrobid 100 mg Capsule] Allergies Allergy/AdvReac Type Severity Reaction Status Date / Time haloperidol [From Haldol] Allergy Unknown Verified 12/22/14 14:37 haloperidol lactate Allergy Unknown Verified 12/22/14 14:37 [From Haldol] ketorolac tromethamine Allergy Unknown Verified 12/22/14 14:37 [From Toradol] ED Review of Systems ROS: Stated complaint: MH Other details as noted in HPI Comment: All other systems reviewed and negative Other: Constitutional: No fevers chills Eyes: No eye pain visual changes ENT: No ear pain or throat pain Neck: Denies pain Respiratory: As per HPI Cardiovascular: Denies chest pain, palpitations, syncope GI: Denies abdominal pain, nausea, vomiting, diarrhea : Denies dysuria Musculoskeletal: Denies back pain, joint swelling Skin: Denies rash, lesions, erythema Neurologic: Denies headache, numbness, weakness Psychiatric: Denies suicidal ideation, hallucinations ED Past Medical Hx - Past Medical History Previous Medical History?: Yes Hx Hypertension: Yes Hx Congestive Heart Failure: No Hx Diabetes: Yes Hx Arthritis: Yes Hx Psychiatric Treatment: Yes (schizo/bipolar) Hx Asthma: Yes Hx COPD: Yes - Surgical History Past Surgical History?: Yes Hx Appendectomy: Yes Additional Surgical History: thyroid surgery, left knee surgery, bilateral tubal ligation, bladder tack - Social History Smoking Status: Unknown if ever smoked Substance Use Type: Prescribed - Medications Home Medications: Home Medications Medication Instructions Recorded Confirmed Last Taken Type Benztropine 1 mg PO BID #7 06/28/16 12/08/16 Unknown Rx Insulin Lispro [HumaLOG VIAL] 0 units SQ AC #1 vial 06/28/16 12/08/16 Unknown Rx clonazePAM 1 mg PO HS #7 06/28/16 12/08/16 Unknown Rx fluPHENAZine HCL [Prolixin] 5 mg PO HS #7 tablet 06/28/16 12/08/16 Unknown Rx glipiZIDE [Glucotrol] 10 mg PO BIDDIAB #60 tablet 06/28/16 12/08/16 Unknown Rx metFORMIN [Glucophage] 850 mg PO BIDDIAB #60 tablet 06/28/16 12/08/16 Unknown Rx traZODone 300 mg PO HS #7 06/28/16 12/08/16 Unknown Rx ALBUTEROL Inhaler [ProAir HFA 2 puff IH QID PRN #1 inhalation 11/18/16 12/08/16 Unknown Rx Inhaler] Azithromycin [Zithromax Z-ANA] 1 dose PO DAILY 5 Days 11/18/16 12/08/16 Unknown Rx Benzonatate [Tessalon Perles] 100 mg PO Q8HR PRN #30 capsule 11/18/16 12/08/16 Unknown Rx Inhaler, Assist Devices [Space 1 each MC PRN PRN #1 spacer 11/18/16 12/08/16 Unknown Rx Chamber Plus] Prednisone [predniSONE 10 mg 10 mg PO .TAPER #1 tab.ds.pk 11/18/16 12/08/16 Unknown Rx (6-Day Pack, 21 Tabs)] Nitrofurantoin Monohyd/M-Cryst 100 mg PO BID #10 capsule 12/08/16 Unknown Rx [Macrobid 100 mg Capsule] ED Physical Exam - General Limitations: No Limitations - Other Other exam information: General: No limitations, patient is alert in no acute distress Head exam: Atraumatic, normocephalic Eyes exam: Normal appearance ENT: Moist mucous membrane, normal oropharynx Neck exam: Normal inspection, full range of motion, no meningismus nontender Respiratory exam: Diana dry cough, mild expiratory wheeze, no tachypnea or accessory muscle use Cardiovascular: Normal rate and rhythm, normal heart sounds Abdomen: Soft, nondistended, and nontender, with normal bowel sounds, no rebound, or guarding Extremity: Full range of motion normal inspection no deformity, no calf tenderness or edema Back: Normal Inspection, full range of motion, no tenderness Neurologic: Alert, oriented x3, cranial nerves intact, no motor or sensory deficit Psychiatric: normal affect, normal mood Skin: Warm, dry, intact ED Course Vital Signs 12/08/16 12/08/16 12/08/16 00:53 09:04 09:05 Temperature 98.2 F 97.6 F Pulse Rate 91 H 94 H Respiratory 18 20 20 Rate Blood Pressure 121/74 Blood Pressure 141/74 [Right] O2 Sat by Pulse 95 99 99 Oximetry - Consultations Consultation #1: 12/08/16 06:55 [facility] social sciences chair spoke to pt. Aggrees that pt does not meet emergent criteria for psychiatric admission. ED Medical Decision Making - Lab Data Result diagrams: 12/08/16 00:59 12/08/16 00:59 Lab Results 12/08/16 12/08/16 12/08/16 Range/Units 00:59 00:59 00:59 WBC 10.3 (4.5-11.0) K/mm3 RBC 5.19 H (3.65-5.03) M/mm3 Hgb 15.9 H (10.1-14.3) gm/dl Hct 45.9 H (30.3-42.9) % MCV 88 (79-97) fl MCH 31 (28-32) pg MCHC 35 H (30-34) % RDW 13.9 (13.2-15.2) % Plt Count 259 (140-440) K/mm3 Lymph % (Auto) 33.3 (13.4-35.0) % [place] % (Auto) 9.1 H (0.0-7.3) % Eos % (Auto) 1.3 (0.0-4.3) % Baso % (Auto) 0.4 (0.0-1.8) % Lymph # 3.4 (1.2-5.4) K/mm3 [place] # 0.9 H (0.0-0.8) K/mm3 Eos # 0.1 (0.0-0.4) K/mm3 Baso # 0.0 (0.0-0.1) K/mm3 Seg Neutrophils % 55.9 (40.0-70.0) % Seg Neutrophils # 5.8 (1.8-7.7) K/mm3 Sodium 141 (137-145) mmol/L Potassium 4.5 (3.6-5.0) mmol/L Chloride 99.8 (98-107) mmol/L Carbon Dioxide 28 (22-30) mmol/L Anion Gap 18 mmol/L BUN 7 (7-17) mg/dL Creatinine 0.5 L (0.7-1.2) mg/dL Estimated GFR > 60 ml/min BUN/Creatinine Ratio 14 % Glucose 303 H (65-100) mg/dL Calcium 9.2 (8.4-10.2) mg/dL Urine Color (Yellow) Urine Turbidity (Clear) Urine pH (5.0-7.0) Ur Specific [place] (1.003-1.030) Urine Protein (Negative) mg/dL Urine Glucose (UA) (Negative) mg/dL Urine Ketones (Negative) mg/dL Urine Blood (Negative) Urine Nitrite (Negative) Urine Bilirubin (Negative) Urine Urobilinogen (<2.0) mg/dL Ur Leukocyte Esterase (Negative) Urine WBC (Auto) (0.0-6.0) /HPF Urine RBC (Auto) (0.0-6.0) /HPF U Epithel Cells (Auto) (0-13.0) /HPF Urine Bacteria (Auto) (Negative) /HPF Urine Opiates Screen Urine Methadone Screen Ur Barbiturates Screen Ur Phencyclidine Scrn Ur Amphetamines Screen U Benzodiazepines Scrn Urine Cocaine Screen U Marijuana (THC) Screen Drugs of Abuse Note Plasma/Serum Alcohol < 0.01 (0-0.07) gm% 12/08/16 12/08/16 Range/Units 02:13 02:13 WBC (4.5-11.0) K/mm3 RBC (3.65-5.03) M/mm3 Hgb (10.1-14.3) gm/dl Hct (30.3-42.9) % MCV (79-97) fl MCH (28-32) pg MCHC (30-34) % RDW (13.2-15.2) % Plt Count (140-440) K/mm3 Lymph % (Auto) (13.4-35.0) % [place] % (Auto) (0.0-7.3) % Eos % (Auto) (0.0-4.3) % Baso % (Auto) (0.0-1.8) % Lymph # (1.2-5.4) K/mm3 [place] # (0.0-0.8) K/mm3 Eos # (0.0-0.4) K/mm3 Baso # (0.0-0.1) K/mm3 Seg Neutrophils % (40.0-70.0) % Seg Neutrophils # (1.8-7.7) K/mm3 Sodium (137-145) mmol/L Potassium (3.6-5.0) mmol/L Chloride (98-107) mmol/L Carbon Dioxide (22-30) mmol/L Anion Gap mmol/L BUN (7-17) mg/dL Creatinine (0.7-1.2) mg/dL Estimated GFR ml/min BUN/Creatinine Ratio % Glucose (65-100) mg/dL Calcium (8.4-10.2) mg/dL Urine Color Yellow (Yellow) Urine Turbidity Clear (Clear) Urine pH 6.0 (5.0-7.0) Ur Specific [place] 1.012 (1.003-1.030) Urine Protein <15 mg/dl (Negative) mg/dL Urine Glucose (UA) >=500 (Negative) mg/dL Urine Ketones Neg (Negative) mg/dL Urine Blood Sm (Negative) Urine Nitrite Neg (Negative) Urine Bilirubin Neg (Negative) Urine Urobilinogen < 2.0 (<2.0) mg/dL Ur Leukocyte Esterase Lg (Negative) Urine WBC (Auto) 40.0 H (0.0-6.0) /HPF Urine RBC (Auto) 49.0 (0.0-6.0) /HPF U Epithel Cells (Auto) 28.0 H (0-13.0) /HPF Urine Bacteria (Auto) 1+ (Negative) /HPF Urine Opiates Screen Presumptive negative Urine Methadone Screen Presumptive negative Ur Barbiturates Screen Presumptive negative Ur Phencyclidine Scrn Presumptive negative Ur Amphetamines Screen Presumptive negative U Benzodiazepines Scrn Presumptive negative Urine Cocaine Screen Presumptive negative U Marijuana (THC) Screen Presumptive negative Drugs of Abuse Note Disclamer Plasma/Serum Alcohol (0-0.07) gm% - EKG Data -: EKG Interpreted by Me (nsr rate 79, nostemi/t inv) - Medical Decision Making Patient is to have any acute psychosis, suicidal, homicidal ideation does not require emergent psychiatric evaluation. She appears to be here due to a disagreement with her roommate. Patient was postictal and therefore chronic COPD and will be discharged home Patient has increase in white cells leukocytosis although she does have elevated amount of the cells which could represent contamination. Patient will be covered with macrobid - Differential Diagnosis schizophrenia, bipolar, COPD Critical Care Time: No Critical care attestation.: If time is entered above; I have spent that time in minutes in the direct care of this critically ill patient, excluding procedure time. ED Disposition Clinical Impression: Schizophrenia, Hyperglycemia, COPD (chronic obstructive pulmonary disease), Urine leukocytes increased Disposition: DC-01 TO HOME OR SELFCARE Is pt being admited?: No Does the pt Need Aspirin: No Condition: Stable Instructions: Chronic Obstructive Pulmonary Disease (ED), Schizophrenia (ED), Urinary Tract Infection in Women (ED) Additional Instructions: continue your current medication. Return if symptoms worsen. Prescriptions: Nitrofurantoin Monohyd/M-Cryst [Macrobid 100 mg Capsule] 100 mg PO BID #10 capsule Referrals: PRIMARY CARE, [Primary Care Provider] - 3-5 Days Time of Disposition: 09:18
[2016-12-08] MEDS ORDERED: MACROBID PO ONE (07:08)
[2016-12-08 09:06] VITALS: BP 141/74
== END 2016-12-08 10:58 | disposition home or self-care (01) ==
LOC: ED 23:51
DX: F20.9 Schizophrenia, unspecified (principal); E11.65 Type 2 diabetes mellitus with hyperglycemia; J44.9 Chronic obstructive pulmonary disease, unspecified; R82.99 Other abnormal findings in urine; I10 Essential (primary) hypertension; M19.90 Unspecified osteoarthritis, unspecified site; F31.9 Bipolar disorder, unspecified; Z90.49 Acquired absence of other specified parts of digestive tract; Z98.51 Tubal ligation status; Z79.4 Long term (current) use of insulin; Z88.8 Allergy status to other drugs, medicaments and biological substances
CPT/HCPCS: 36415; 80048; 80307; 81001; 82962; 85025; 87086; 96372; 99284; G0480; 80320; J1815

== ENCOUNTER 2017-01-09 16:29 | Emergency (ER) | payer MEDICARE ==
[2017-01-09 17:06] LABS: Basophils % (Auto) 0.3 % (0.0-1.8); Eosinophils % (Auto) 1.3 % (0.0-4.3); Hematocrit 48.8 % (30.3-42.9); Hemoglobin 16.4 gm/dl (10.1-14.3); Mean Corpuscular HGB Conc 34 % (30-34); Mean Corpuscular Hemoglobin 31 pg (28-32); Mean Corpuscular Volume 91 fl (79-97); Platelet Count 238 K/mm3 (140-440); Red Blood Count 5.37 M/mm3 (3.65-5.03); Red Cell Distribution Width 13.3 % (13.2-15.2)
[2017-01-09 17:38] LABS: Anion Gap 24 mmol/L; BUN/Creatinine Ratio 18; Blood Urea Nitrogen 7 mg/dL (7-17); Calcium 8.8 mg/dL (8.4-10.2); Carbon Dioxide 20 mmol/L (22-30); Chloride 93.3 mmol/L (98-107); Glucose 360 mg/dL (65-100); Potassium 3.9 mmol/L (3.6-5.0); Sodium 133 mmol/L (137-145)
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
--- NOTE | 2017-01-09 19:58 | Cat Scan Report ---
FINAL REPORT EXAM: CT HEAD/BRAIN WO CON HISTORY: dizziness TECHNIQUE: Standard unenhanced CT of the head at 5.0 millimeter axial increments PRIORS: CT head 12/22/2014 FINDINGS: The ventricular system is normal in size and configuration. There is no evidence for parenchymal volume loss. There is no evidence for mass lesion, mass effect, midline shift, acute intracranial hemorrhage, or acute ischemia/ infarction. Visualized paranasal sinuses are clear. IMPRESSION: Negative CT of the head. No acute intracranial process noted. No change.
[2017-01-09 21:44] VITALS: BP 129/77
== END 2017-01-09 21:40 | disposition home or self-care (01) ==
LOC: ED 16:29
DX: R42 Dizziness and giddiness (principal); F25.9 Schizoaffective disorder, unspecified; I10 Essential (primary) hypertension; E11.9 Type 2 diabetes mellitus without complications; M19.90 Unspecified osteoarthritis, unspecified site; J45.909 Unspecified asthma, uncomplicated; J44.9 Chronic obstructive pulmonary disease, unspecified; Z72.0 Tobacco use; Z79.4 Long term (current) use of insulin
CPT/HCPCS: 36415; 70450; 80048; 85025; 93005; 93010